=== PATIENT | male | born 1940 | race Caucasian/White ===

== ENCOUNTER 2018-06-10 16:04 | Inpatient (IN) | payer MEDICARE ==
[2018-06-10] VITALS (11 sets, daily range): BP systolic 105–148; BP diastolic 57–83; PULSE 60–85; TEMP 98.2–98.3
--- NOTE | 2018-06-10 11:30 | NUR ---
Pt arrived via ems to room 353. Previous report recevied from Anel RN, [facility]. Pt awake oriented to room. Heparin drip infusing at 10.3ml/hr. Pt to have cardiac cath shortly. No concerns at this time.
--- NOTE | 2018-06-10 12:30 | NUR ---
Pt taken to public works laborer for cardiac cath
--- NOTE | 2018-06-10 14:00 | NUR ---
Pt returned to room from quality assurance/r&d lab technician. Awake AAO X3. Tele on pt, vital signs stable at this time. Post op vitals in place. Family at bedside. TR band to right radial intact, 14cc of air. No hematoma noted. Will continue to monitor. Call light in reach.
--- NOTE | 2018-06-10 15:00 | NUR ---
Vitals remain stable. IV fluid infusing at 100ml/hr.
--- NOTE | 2018-06-10 16:30 | NUR ---
FSBS is 100, pt eating dinner. 5CC of air released, minimal bleeding noted from TR band, returned 5CC of air. Will continue to monitor.
--- NOTE | 2018-06-10 16:46 | NUR ---
5 CC OF AIR RELEASED FROM 14CC, BLEEDING NOTED UNDER TR BAND. AIR RETURNED TO 14CC.
[2018-06-10] MEDS ORDERED: PRINIVIL10 MG PO (17:40)
[2018-06-10] MEDS ORDERED: KLONOPIN 0.5MG0.5 MG PO (17:41)
[2018-06-10] MEDS ORDERED: MULTI VITAMINS1 TAB PO (17:42)
[2018-06-10] MEDS ORDERED: NOVOLOG 100U100 U/M1 SQ (17:44)
[2018-06-10] MEDS ORDERED: ASPIRIN 81M81 MG/TA2 PO (17:45)
[2018-06-10] MEDS ORDERED: BRILINTA90 MG PO (17:46)
[2018-06-10] MEDS ORDERED: LIPITOR 40MG TA40 MG PO (17:47)
[2018-06-10] MEDS ORDERED: TOPROL XL 25MG25 MG PO (17:48)
--- NOTE | 2018-06-10 18:11 | NUR ---
PT RESTING IN BED AT THIS TIME.VSS.TR BAND IN PLACE.WILL MONITOR FOR FEW MORE HOURS BEFORE RELEASING AIR AGAIN.EDUCATION PROVIDED TO PT.NO HEMATOMA NOTED ON ASSESSMENT.WILL CONTINUE TO MONITOR.CALL LIGHT IN REACH
--- NOTE | 2018-06-10 20:00 | NUR ---
PT IN BED SLEEPING AT THIS TIME. NO S/S OF PAIN OR DISCOMFORT NOTED, CALL LIGHT WITHIN REACH.
--- NOTE | 2018-06-11 00:05 | NUR ---
SLOWLY RELEASED IT BAND ON PT'S RIGHT WRIST AREA. NO BLEEDING OR HEMATOMA. RIGHT WRIST AREA IS RED, BUT PT HAS NO PAIN OR ANY PROBLEMS WITH IT. PT DOING WELL AND ABLE TO SLEEP. CALL LIGHT WITHIN REACH.
[2018-06-11 00:19] VITALS: BP 124/65; PULSE 85; TEMP 97.8
[2018-06-11 04:56] VITALS: BP 142/74; PULSE 86; TEMP 97.7
[2018-06-11 05:57] VITALS: BP 117/62; PULSE 72; TEMP 98.4
--- NOTE | 2018-06-11 06:16 | NUR ---
UNEVENTFUL NIGHT, PT SLEPT WELL. RIGHT WRIST HAS NO HEMATOMA OR BLEEDING. PROTECTIVE DRSG IS STILL C/D/I. PT ADVISES THAT HE FEELS FINE. PT HAS BEEN UP IN ROOM AMBULATING, DOING PERSONAL HYGENE AND USED THE BATHROOM. PT DENIES PAIN OR DISCOMFORT AND HAS NO NEEDS AT THIS TIME, CALL LIGHT WITHIN REACH.
--- NOTE | 2018-06-11 08:00 | NUR ---
Patient resting in bed watching television at this time. Patient is alert and oriented, answers questions appropriately. Patient denies chest pain or discomfort. Cath site in right radius is CDI, no hematoma visible. Telemetry in place per order. Patient denies pain or further needs at this time, call light within reach.
[2018-06-11 08:35] VITALS: BP 119/65; PULSE 75; TEMP 97.8
[2018-06-11] MEDS ORDERED: ASPIRIN 81M81 MG/TA2 PO (09:21)
[2018-06-11] MEDS ORDERED: NORVASC 5MG5 MG/TAB PO (09:24)
[2018-06-11] MEDS ORDERED: ACTOPLUS MET 501 TAB PO (09:25)
[2018-06-11] MEDS ORDERED: TOPROL XL 25MG25 MG PO (09:26)
[2018-06-11] MEDS ORDERED: BRILINTA90 MG PO (09:26)
[2018-06-11] MEDS ORDERED: LIPITOR 40MG TA40 MG PO (09:26)
--- NOTE | 2018-06-11 10:30 | NUR ---
Discharge teaching conducted with patient, family at bedside. Patient states he is familiar with AHA diet and cardiac precautions. Reviewed symptoms that would warrent a return to ER or a call to office. Reviewed new and changed medications, scripts and information packs in discharge packet. Reviewed order for primary care follow up and cardiology follow up, names, phone numbers, and desired appointment times in discharge packet, along with healthcare summary for primary care. Patient denies questions at this time. Telemetry removed. IV access discontinued, catheter removed from left wrist was intact. Hemostasis achieved prior to applying bandaid. Patient escorted to POV, states all personal belongings collected.
== END 2018-06-11 10:35 | disposition home or self-care (01) | DRG 247 ==
LOC: MEDICAL 16:04
PROVIDERS: ADMIT Internal Medicine
PROC: 027035Z Dilation of Coronary Artery, One Artery with Two Drug-eluting Intraluminal Devices, Percutaneous Approach (ICD-10-PCS; principal; 2018-06-10)
PROC: B2111ZZ Fluoroscopy of Multiple Coronary Arteries using Low Osmolar Contrast (ICD-10-PCS; 2018-06-10)
PROC: B2151ZZ Fluoroscopy of Left Heart using Low Osmolar Contrast (ICD-10-PCS; 2018-06-10)
PROC: 4A023N7 Measurement of Cardiac Sampling and Pressure, Left Heart, Percutaneous Approach (ICD-10-PCS; 2018-06-10)
DX: I21.4 Non-ST elevation (NSTEMI) myocardial infarction (principal); I10 Essential (primary) hypertension; E11.9 Type 2 diabetes mellitus without complications; E78.5 Hyperlipidemia, unspecified
CPT/HCPCS: 99223-AI; 99239; C1725; C1769; C1874; C1887; C9600